=== PATIENT | male | born 1945 | race Caucasian/White ===

== ENCOUNTER 2017-09-27 15:09 | Inpatient (IN) | payer OTHER ==
[~2017-09-27] VITALS: Ht 165.1 cm; Wt 86.2 kg
== END 2017-10-16 10:37 | disposition home health service (06) | DRG 394 ==
LOC: ER 15:09 → SURH 21:14
PROC: 3E0436Z Introduction of Nutritional Substance into Central Vein, Percutaneous Approach (ICD-10-PCS; principal; 2017-09-28)
PROC: 02HV33Z Insertion of Infusion Device into Superior Vena Cava, Percutaneous Approach (ICD-10-PCS; 2017-09-28)
PROC: BW21Y0Z Computerized Tomography (CT Scan) of Abdomen and Pelvis using Other Contrast, Unenhanced and Enhanced (ICD-10-PCS; 2017-10-04)
PROC: BW11YZZ Fluoroscopy of Abdomen and Pelvis using Other Contrast (ICD-10-PCS; 2017-10-05)
DX: K63.2 Fistula of intestine (principal); T81.83XA Persistent postprocedural fistula, initial encounter; B96.20 Unspecified Escherichia coli [E. coli] as the cause of diseases classified elsewhere; E66.8 Other obesity; K21.9 Gastro-esophageal reflux disease without esophagitis; F17.210 Nicotine dependence, cigarettes, uncomplicated; B96.89 Other specified bacterial agents as the cause of diseases classified elsewhere

== ENCOUNTER → 2017-11-14 | Emergency (ER) | payer OTHER ==
[~2017-11-14] VITALS: Ht 165.1 cm; Wt 81.6 kg
== END | disposition home or self-care (01) ==
LOC: ER 15:30
DX: L02.211 Cutaneous abscess of abdominal wall (principal); K63.2 Fistula of intestine; B96.1 Klebsiella pneumoniae [K. pneumoniae] as the cause of diseases classified elsewhere; B96.4 Proteus (mirabilis) (morganii) as the cause of diseases classified elsewhere; B96.89 Other specified bacterial agents as the cause of diseases classified elsewhere

== ENCOUNTER → 2017-11-20 | Emergency (ER) | payer OTHER ==
[~2017-11-20] VITALS: Ht 165.1 cm; Wt 77.1 kg
== END | disposition home or self-care (01) ==
LOC: ER 12:27
DX: K63.2 Fistula of intestine (principal)